=== PATIENT | female | born 1970 | race Caucasian/White ===

== ENCOUNTER 2018-11-11 05:20 | Emergency (ER) | payer OTHER ==
[2018-11-11 06:24] LABS: Absolute Lymphocytes (CBC) 1.8 K/uL (0.7-4.9); Absolute Monocytes 0.4 K/uL (0.1-1.3); Basophils % 0.5 % (0-1.3); Eosinophils % 6.2 % (0-4.4); Hematocrit 41.3 % (36.0-45.0); Lymphocytes % 26.7 % (15.3-44.8); MPV 7.9 fL (7.6-11.3); Monocytes % 5.6 % (3.3-12.3); RBC Red Blood Cell Count 4.17 M/uL (3.86-4.86)
[2018-11-11] MEDS ORDERED: KETOROLAC 30 MG/ML INJ ONE (06:27)
[2018-11-11] MEDS ORDERED: DIPHENHYDRAMINE 50 MG/ML VIAL ONE (06:27)
[2018-11-11] MEDS ORDERED: NA CHLORIDE 0.9% 1,000 ML ONE (06:27)
[2018-11-11] MEDS ORDERED: METOCLOPRAMIDE 10 MG/2mL INJ ONE (06:27)
[2018-11-11 06:35] LABS: BUN Blood Urea Nitrogen 11 mg/dL (7-18); Bicarbonate 26 mmol/L (21-32); Glucose Level 103 mg/dL (74-106); Potassium 3.7 mmol/L (3.5-5.1); Sodium Level 141 mmol/L (136-145); Troponin (Emerg Dept Use Only) < 0.02 ng/mL (0.0-0.045)
--- NOTE | 2018-11-11 07:37 | EKG ---
Test Date: 2018-11-11 Test Time: 05:41:48 Supervisor Product Inspection: MEASUREMENT RESULTS: Intervals: Rate: 48 VA: 180 QRSD: 94 QT: 442 QTc: 394 [place]: P: 54 VA: 180 QRS: 49 T: 69 INTERPRETIVE STATEMENTS: Sinus bradycardia Otherwise normal ECG Compared to ECG 01/03/2018 15:48:36 Right-axis deviation no longer present Electronically Signed On 11-11-18 07:36:26 BATCH DUMPER by Rubens Ortez
[2018-11-11] MEDS ORDERED: cloNIDine HCl 0.1 MG TAB ONE (07:39)
--- NOTE | 2018-11-11 08:32 | EDPHYS ---
Physician Documentation [facility] Name: Makenzie Gallardo Age: 48 yrs Sex: Female : 1970 Arrival Date: 11/11/2018 Time: 05:23 Bed 7 Private MD: Julius Lubin V ED Physician Peterson Neftali HPI: 11/11 06:50 This 48 yrs old Female presents to ER via Wheelchair with complaints of kb Vomiting, Dizziness, Headache. 06:50 The patient complains of pain to the forehead. The patient describes the headache as kb constant. Onset: The symptoms/episode began/occurred this morning. Associated signs and symptoms: Pertinent positives: nausea, Photophobia vomiting. Severity of symptoms: At its worst the pain was moderate, in the emergency department the pain is unchanged. Headache History: The patient has had previous headaches and this one is similar to previous episodes. The symptoms are alleviated by nothing. the symptoms are aggravated by lights. The patient has experienced similar episodes in the past, a few times. The patient has not recently seen a physician. Pt reports she woke up with a migraine headache this morning. Has a history of them, but hasn't had one in a long time. States she hasn't had seroquel in 2 days so is concerned that that is why she has the headache. Reports she has been on seroquel every day for 2 years, ran out and is supposed to get a refill today. 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 - Hysterectomy lp1 Historical: - Allergies: 05:43 No Known Allergies; lp1 - Home Meds: 05:43 lithium carbonate 300 mg Oral cap 2 caps nightly [Active]; escitalopram oxalate 10 mg lp1 oral tab 1 tab once daily [Active]; losartan 25 mg oral tab 1 tab once daily [Active]; propranolol 120 mg Oral Cs24 1 cap once daily [Active]; lamotrigine 100 mg oral tab 1 tab once daily [Active]; Seroquel 200 mg oral tab nightly [Active]; 06:18 Lexapro Oral [Active]; bb - PMHx: 05:43 Bipolar disorder; Depression; Hypertension; lp1 - PSHx: 05:43 Hysterectomy; lp1 - Immunization history:: Adult Immunizations up to date. - Social history:: Smoking status: Patient/guardian denies using tobacco. - Ebola Screening: : No symptoms or risks identified at this time. ROS: 06:50 Constitutional: Negative for fever, chills, and weight loss, Eyes: Negative for injury, kb pain, redness, and discharge, ENT: Negative for injury, pain, and discharge, Neck: Negative for injury, pain, and swelling, Cardiovascular: Negative for chest pain, palpitations, and edema, Respiratory: Negative for shortness of breath, cough, wheezing, and pleuritic chest pain, Back: Negative for injury and pain, : Negative for injury, bleeding, discharge, and swelling, MS/Extremity: Negative for injury and deformity, Skin: Negative for injury, rash, and discoloration. 06:50 Abdomen/GI: Positive for nausea and vomiting, Negative for abdominal pain, diarrhea, constipation, abdominal cramps, abdominal distension, anorexia. 06:50 Neuro: Positive for headache. Exam: 06:50 Constitutional: This is a well developed, well nourished patient who is awake, alert, kb and in no acute distress. Head/Face: Normocephalic, atraumatic. Eyes: Pupils equal round and reactive to light, extra-ocular motions intact. Lids and lashes normal. Conjunctiva and sclera are non-icteric and not injected. Cornea within normal limits. Periorbital areas with no swelling, redness, or edema. ENT: Nares patent. No nasal discharge, no septal abnormalities noted. Tympanic membranes are normal and external auditory canals are clear. Oropharynx with no redness, swelling, or masses, exudates, or evidence of obstruction, uvula midline. Mucous membranes moist. Neck: Trachea midline, no thyromegaly or masses palpated, and no cervical lymphadenopathy. Supple, full range of motion without nuchal rigidity, or vertebral point tenderness. No Meningismus. Chest/axilla: Normal chest wall appearance and motion. Nontender with no deformity. No lesions are appreciated. Cardiovascular: Regular rate and rhythm with a normal S1 and S2. No gallops, murmurs, or rubs. Normal PMI, no JVD. No pulse deficits. Respiratory: Lungs have equal breath sounds bilaterally, clear to auscultation and percussion. No rales, rhonchi or wheezes noted. No increased work of breathing, no retractions or nasal flaring. Abdomen/GI: Soft, non-tender, with normal bowel sounds. No distension or tympany. No guarding or rebound. No evidence of tenderness throughout. Skin: Warm, dry with normal turgor. Normal color with no rashes, no lesions, and no evidence of cellulitis. MS/ Extremity: Pulses equal, no cyanosis. Neurovascular intact. Full, normal range of motion. Neuro: Awake and alert, GCS 15, oriented to person, place, time, and situation. Cranial nerves II-XII grossly intact. Motor strength 5/5 in all extremities. Sensory grossly intact. Cerebellar exam normal. Normal gait. Vital Signs: 05:38 BP 186 / 127 LA; Pulse 58; Resp 14; Temp 97.5(TE); Pulse Ox 99% on R/A; Weight 81.65 lp1 kg; Height 5 ft. 9 in. (175.26 cm); Pain 8/10; 05:38 BP 197 / 113 RA; lp1 06:38 BP 167 / 111; Pulse 53; Resp 13; Pulse Ox 98% on R/A; lp1 07:28 BP 175 / 115; Pulse 62; Resp 17; Pulse Ox 99% on R/A; sg 07:55 BP 171 / 105; Pulse 56; Pulse Ox 100% ; sg 05:38 Body Mass Index 26.58 (81.65 kg, 175.26 cm) lp1 Tan Coma Score: 07:00 Eye Response: spontaneous(4). Verbal Response: oriented(5). Motor Response: obeys kb commands(6). Total: 15. MDM: 06:01 Patient medically screened. kb 07:00 Data reviewed: vital signs, nurses notes. Data interpreted: Pulse oximetry: on room air kb is 98 %. Interpretation: normal. 07:31 Counseling: I had a detailed discussion with the patient and/or guardian regarding: the kb historical points, exam findings, and any diagnostic results supporting the discharge/admit diagnosis, lab results, radiology results, the need for outpatient follow up, a family practitioner, to return to the emergency department if symptoms worsen or persist or if there are any questions or concerns that arise at home. ED course: Pt's headache improved. States she is feeling better, appears to be better. PCP on holiday until next Sunday, will prescribe 7 seroquel today and pt will call PCP when he returns for refill of medication. 08:31 ED course: Pt states she hasn't taken her bp meds yet today, but will take them when kb she gets home. Pt is asymptomatic of bp. 11/11 06:07 Order name: CBC with Diff; Complete Time: 06:47 kb 11/11 06:07 Order name: Basic Metabolic Panel; Complete Time: 06:39 kb 11/11 06:07 Order name: CT Head Brain wo Cont kb 11/11 06:07 Order name: Troponin (emerg Dept Use Only); Complete Time: 06:39 kb 11/11 06:07 Order name: EKG; Complete Time: 06:08 kb 11/11 06:07 Order name: EKG - Nurse/Tech; Complete Time: 06:15 kb Administered Medications: 06:37 Drug: NS 0.9% 1000 ml Route: IV; Rate: 1000 ml; Site: right antecubital; lp1 06:37 Drug: TORadol 30 mg Route: IVP; Site: right antecubital; lp1 07:32 Follow up: Response: No adverse reaction; Pain is decreased sg 06:37 Drug: Benadryl 12.5 mg Route: IVP; Site: right antecubital; lp1 07:32 Follow up: Response: No adverse reaction sg 06:37 Drug: Reglan 10 mg Route: IVP; Site: right antecubital; lp1 07:32 Follow up: Response: No adverse reaction; Pain is decreased sg 07:32 Drug: cloNIDine 0.1 mg Route: PO; sg Disposition: 21:00 Co-signature as Attending Physician, Neftali Peterson MD. Disposition: 11/11/18 08:32 Discharged to Home. Impression: Migraine, Essential (primary) hypertension. - Condition is Stable. - Discharge Instructions: Hypertension, [id number]-[id number], Migraine Headache, [id number]. - Prescriptions for Seroquel 200 mg Oral tablet - take 1 tablet by ORAL route At bedtime; 7 tablet. - Medication Reconciliation Form, Thank You Letter, Antibiotic Education, Prescription Opioid Use form. - Follow up: Private Physician; When: 2 - 3 days; Reason: Recheck today's complaints, Continuance of care, Re-evaluation by your physician. Follow up: Emergency Department; When: As needed; Reason: Worsening of condition. Signatures: Dispatcher [employer] BREONNA Bustos Yuliya, PEWTER FABRICATOR-C PEWTER FABRICATOR-Ckb Gage Kilgore, RN RN sg Natalie Patton, RN RN bb Rody Sanchez RN RN lp1 Neftali Peterson MD MD gs Corrections: (The following items were deleted from the chart) 08:55 08:32 11/11/2018 08:32 Discharged to Home. Impression: Migraine; Essential (primary) sg hypertension. Condition is Stable. Discharge Instructions: Hypertension, [id number], Migraine Headache, [id number]-[id number]. Prescriptions for Seroquel 200 mg Oral tablet - take 1 tablet by ORAL route At bedtime; 7 tablet. and Forms are Medication Reconciliation Form, Thank You Letter, Antibiotic Education, Prescription Opioid Use. Follow up: Private Physician; When: 2 - 3 days; Reason: Recheck today's complaints, Continuance of care, Re-evaluation by your physician. Follow up: Emergency Department; When: As needed; Reason: Worsening of condition. kb
--- NOTE | 2018-11-11 08:32 | ER ---
Nurse's Notes [facility] Name: Makenzie Gallardo Age: 48 yrs Sex: Female : 1970 Arrival Date: 11/11/2018 Time: 05:23 Bed 7 Private MD: Julius Lubin V Diagnosis: Migraine;Essential (primary) hypertension Presentation: 11/11 05:37 Presenting complaint: Patient states: Woke up this morning with severe headache, lp1 nausea, dizziness, light sensitivity, epigastric pain; States having x 3 episodes of diarrhea this morning. Transition of care: patient was not received from another setting of care. Onset of symptoms was November 11, 2018. Risk Assessment: Do you want to hurt yourself or someone else? Patient reports no desire to harm self or others. Initial Sepsis Screen: Does the patient meet any 2 criteria? No. Patient's initial sepsis screen is negative. Does the patient have a suspected source of infection? No. Patient's initial sepsis screen is negative. Care prior to arrival: None. 05:37 Method Of Arrival: Wheelchair lp1 05:37 Acuity: OPHELIA 3 lp1 CO OP: 05:47 LMP N/A - Hysterectomy lp1 Historical: - Allergies: 05:43 No Known Allergies; lp1 - Home Meds: 05:43 lithium carbonate 300 mg Oral cap 2 caps nightly [Active]; escitalopram oxalate 10 mg lp1 oral tab 1 tab once daily [Active]; losartan 25 mg oral tab 1 tab once daily [Active]; propranolol 120 mg Oral Cs24 1 cap once daily [Active]; lamotrigine 100 mg oral tab 1 tab once daily [Active]; Seroquel 200 mg oral tab nightly [Active]; 06:18 Lexapro Oral [Active]; bb - PMHx: 05:43 Bipolar disorder; Depression; Hypertension; lp1 - PSHx: 05:43 Hysterectomy; lp1 - Immunization history:: Adult Immunizations up to date. - Social history:: Smoking status: Patient/guardian denies using tobacco. - Ebola Screening: : No symptoms or risks identified at this time. Screenin:46 Abuse screen: Denies threats or abuse. Denies injuries from another. Nutritional lp1 screening: No deficits noted. Tuberculosis screening: No symptoms or risk factors identified. Fall Risk None identified. Assessment: 05:43 General: Appears uncomfortable, Behavior is restless. Pain: Complains of pain in lp1 epigastric area, head Pain currently is 8 out of 10 on a pain scale. Quality of pain is described as pressure, sharp, Pain began 2 hours ago. Also complains of nausea, inability to concentrate. Neuro: Level of Consciousness is awake, alert, obeys commands, Oriented to person, place, time, situation, Reports headache in entire photophobia. Cardiovascular: Patient's skin is warm and dry. Respiratory: Respiratory effort is even, unlabored. GI: Abdomen is non-distended, Bowel sounds present X 4 quads. Abdomen is tender to palpation in epigastric area. : Denies burning with urination. EENT: No signs and/or symptoms were reported regarding the EENT system. Derm: Skin is pink, warm \T\ dry. Musculoskeletal: Circulation, motion, and sensation intact. 06:38 Reassessment: Patient returned from CT at this time. lp1 07:30 Reassessment: Patient appears in no apparent distress at this time. Patient and/or sg family updated on plan of care and expected duration. Pain level reassessed. Patient is alert, oriented x 3, equal unlabored respirations, skin warm/dry/pink. Keerthi SANTILLAN a bedside evaluating pt at this time, v/o received for Clonidine 0.1 POx1, pt medicated see EMAR Patient states feeling better. Vital Signs: 05:38 BP 186 / 127 LA; Pulse 58; Resp 14; Temp 97.5(TE); Pulse Ox 99% on R/A; Weight 81.65 lp1 kg; Height 5 ft. 9 in. (175.26 cm); Pain 8/10; 05:38 BP 197 / 113 RA; lp1 06:38 BP 167 / 111; Pulse 53; Resp 13; Pulse Ox 98% on R/A; lp1 07:28 BP 175 / 115; Pulse 62; Resp 17; Pulse Ox 99% on R/A; sg 07:55 BP 171 / 105; Pulse 56; Pulse Ox 100% ; sg 05:38 Body Mass Index 26.58 (81.65 kg, 175.26 cm) lp1 Eclectic Coma Score: 07:00 Eye Response: spontaneous(4). Verbal Response: oriented(5). Motor Response: obeys kb commands(6). Total: 15. ED Course: 05:23 Patient arrived in ED. es 05:24 Julius Lubin MD is Private Physician. es 05:37 Rody Sanchez, RN is Primary Nurse. lp1 05:38 Triage completed. lp1 05:39 Arm band placed on left wrist. lp1 05:46 Patient has correct armband on for positive identification. Placed in gown. Bed in low lp1 position. youth nutritional monitor on. Pulse ox on. NIBP on. 06:01 Yuliya Bustos FNP-C is [facility]. kb 06:01 Neftali Peterson MD is Attending Physician. kb 06:[address] via wheelchair. kw1 06:23 CT Head Brain wo Cont In Process Unspecified. EDMS 06:24 CT completed. Patient tolerated procedure well. Patient moved back from CT. kw1 07:09 Primary Nurse role handed off by Rody Sanchez, RN sg 07:09 Gage Kilgore, RN is Primary Nurse. sg 08:50 No provider procedures requiring assistance completed. IV discontinued, intact, sg bleeding controlled, No redness/swelling at site. Pressure dressing applied. Administered Medications: 06:37 Drug: NS 0.9% 1000 ml Route: IV; Rate: 1000 ml; Site: right antecubital; lp1 06:37 Drug: TORadol 30 mg Route: IVP; Site: right antecubital; lp1 07:32 Follow up: Response: No adverse reaction; Pain is decreased sg 06:37 Drug: Benadryl 12.5 mg Route: IVP; Site: right antecubital; lp1 07:32 Follow up: Response: No adverse reaction sg 06:37 Drug: Reglan 10 mg Route: IVP; Site: right antecubital; lp1 07:32 Follow up: Response: No adverse reaction; Pain is decreased sg 07:32 Drug: cloNIDine 0.1 mg Route: PO; sg Outcome: 08:32 Discharge ordered by . kb 08:50 Discharged to home ambulatory, with family. sg 08:50 Condition: good 08:50 Discharge instructions given to patient, Instructed on discharge instructions, follow up and referral plans. safety practices, Demonstrated understanding of instructions, follow-up care, medications. 08:55 Patient left the ED. sg Signatures: Dispatcher [employer] EDMO Yuliya Bustos FNP-C FNP-Ckb Gage Kilgore, RN RN sg Emilee, Natalie Navarrete RN RN bb Rody Sanchez RN RN [facility] Lizeth Arguello [facility]
--- NOTE | 2018-11-11 09:50 | RAD REPORT ---
EXAM DESCRIPTION: CT - Head Brain Wo Cont - 11/11/2018 6:51 am CLINICAL HISTORY: HEADACHE Severe headache COMPARISON: No comparisons TECHNIQUE: All CT scans are performed using dose optimization technique as appropriate and may inclu de automated exposure control or mA/KV adjustment according to patient size. FINDINGS: No intracranial hemorrhage, hydrocephalus or extra-axial fluid collection.No areas of brai n edema or evidence of midline shift. The paranasal sinuses and mastoids are essentially clear. The calvarium is intact. IMPRESSION: No acute intracranial abnormality.
== END 2018-11-11 08:55 | disposition home or self-care (01) ==
LOC: ER 05:20
DX: G43.909 Migraine, unspecified, not intractable, without status migrainosus (principal); I10 Essential (primary) hypertension; F31.9 Bipolar disorder, unspecified; F32.9 Major depressive disorder, single episode, unspecified
CPT/HCPCS: 36415; 70450; 80048; 84484; 85025; 93005; 96374; 96375; 99285; J2765; J7030

== ENCOUNTER → 2024-10-07 | Day surgery (SDC) | payer BC ==
[2024-10-06 13:58] LABS: Absolute Eosinophils 0.2 K/uL (0-0.5); Absolute Lymphocytes (CBC) 1.3 K/uL (0.7-4.9); Absolute Monocytes 0.3 K/uL (0.1-1.3); Absolute Neutrophil 3.1 K/uL (1.8-8.0); Basophils % 0.7 % (0-1.3); Eosinophils % 3.3 % (0-4.4); Hematocrit 41.7 % (36.0-45.0); Hemoglobin 13.9 g/dL (12.0-15.0); Lymphocytes % 27.2 % (15.3-44.8); MCH 33.1 pg (27.0-35.0); MCHC 33.3 g/dL (32.0-36.0); MCV 99.3 fL (80-100); MPV 7.7 fL (7.6-11.3); Monocytes % 5.6 % (3.3-12.3); Neutrophils % 63.2 % (41.7-73.7); Platelets 210 thou/uL (152-406); Red Cell Distribution Width 12.8 % (12.1-15.2)
[2024-10-06 14:04] LABS: Anion Gap 7.6 mEq/L (5.0-15.0); Potassium 3.6 mEq/L (3.5-5.1)
[~2024-10-07] MED LIST: CEFAZOLIN SODIUM 2 GM/VIAL ONE; FENTANYL CITR 100 MCG/2 ML ONE; KETOROLAC 30 MG/ML INJ ONE; LIDOCAINE 2% MPF 5 ML VIAL ONE; MIDAZOLAM HCL 2 MG/2 ML INJ ONE; NS 0.9% VIAL 20 ML ONE; ONDANSETRON 4 MG/2 ML VIAL ONE; ROCURONIUM 50 MG/5 ML VIAL IV ONE; dexAMETHasone 10 MG/ML VIAL ONE; propofoL 200 MG/20 ML VIAL IV ONE
--- NOTE | 2024-10-07 10:06 | EKG ---
Test Date: 2024-10-06 Test Time: 14:40:05 Leather Heel Breaster: BRANDAN MEASUREMENT RESULTS: Intervals: Rate: 71 SC: 180 QRSD: 88 QT: 376 QTc: 408 [place]: P: 75 SC: 180 QRS: 92 T: 70 INTERPRETIVE STATEMENTS: Normal sinus rhythm Rightward axis Borderline ECG Compared to ECG 11/11/2018 05:41:48 Right-axis deviation now present Sinus bradycardia no longer present Electronically Signed On 10-07-24 10:06:23 SILVERLIGHT DEVELOPER by Aaron Sesay
[2024-10-07] MEDS: Ringers Lactate 1,000 ML IV ONE (10:48)
[2024-10-07] MEDS: LIDOCAINE HCL/EPINEPHRINE 20 ML MDV ONE (13:41)
--- NOTE | 2024-10-07 14:54 | P.OP ---
Preoperative diagnosis: Umbilical Hernia Postoperative diagnosis: Umbilical Hernia Primary procedure: Laparoscopic Umbilical Hernia Repair without mesh Secondary procedure: Diagnostic Laparoscopy with fluid aspiration Anesthesia: GETA + Local Estimated blood loss: <5cc Specimen: Fluid sent from peritoneum Findings: Small ~ 1cm umbilical hernia, large ovarian fluidic cyst Complications: None Implants: none Transferred to: Recovery Room Condition: Good
[2024-10-07] MEDS: HYDROMORPHONE HCL 1 MG/ML INJ ONE (15:22)
[2024-10-07] MEDS: MEPERIDINE HCL 25 MG/ML SYR ONE (15:41)
[2024-10-07] MEDS: HYDROCODONE/APAP 7.5/325 MG TAB ONE (16:20)
[2024-10-07 17:51] VITALS: BP 137/86; TEMP 97.5; O2SAT 98
--- NOTE | 2024-10-07 21:23 | OP ---
Date of Procedure: 10/07/2024 Surgeon: Kostas Perkins MD, Brief History Of Present Illness: The patient is a 54-year-old woman who is known to me from recent clinic visit with a complaint of longstanding worsening umbilical hernia with small protrusion, pain and tenderness. She additionally had some lower abdominal pain which is intermittent at times. She had an ultrasound recently which showed she had a left lower quadrant fluid collection which was not quantified in size, possibly multiloculated collection versus bowel on the ultrasound report. Preoperative Diagnosis: Umbilical hernia. Postoperative Diagnosis: Umbilical hernia/large ovarian cystic mass. Procedures Performed: 1.Laparoscopic umbilical hernia repair with primary repair without mesh. 2.Diagnostic laparoscopy with fluid aspiration, pelvic washings. Anesthesia: General endotracheal plus local with 1% lidocaine. Estimated Blood Loss: Less than 5 cc. Specimen: Pelvic fluid sent from peritoneum for analysis and cytology. Findings: A small 1 cm umbilical hernia was noted and a large ovarian fluidic cyst was noted. Complications: None. Implants: None. Disposition: The patient transferred to recovery room in good condition. Intraoperative consult with Dr. Cynthia Sagastume, gynecologic surgeon. Procedure In Detail: After informed consent was obtained, patient was brought into the operating mary m, prepped and draped in the usual sterile fashion. After adequate anesthesia was achieved, I anesth etized an area in the left upper quadrant down to subcutaneous tissue. A 5 mm 0-degree optical troca r was introduced in the abdomen, at this point. I immediately encountered some straw-colored clear f luid. At this point, pneumoperitoneum was achieved. There was no bowel injury throughout the case o r injury to any other solid structures. I then placed a 12 mm trocar in the left mid abdomen. The p atient had a very large cystic type structure emanating from the pelvis consistent with a large ovari an cyst or multiple cysts. The ovary could be visualized in this area as well as in the fallopian tu be material which was over this cystic mass which took up over half the abdominal compartment space. I, at this point, opted to close the umbilical hernia using a 2-0 V-Loc suture with a primary fashio n. I opted not to place mesh at this point as I consulted Dr. Cynthia Sagastume for intraoperative ev aluation of this large cystic pelvic mass. She came in and evaluated the above issue. Please see Dr Patti Sagastume's note for full details regarding her aspect of the procedure. Per Dr. Sagastume's recomme ndations, we opted to not perform any further operation beyond this and therefore I opted to not plac e mesh at this time and no additional surgical interventions other than laparoscopy inspection were p erformed. The pelvic fluid was sent off for pathologic examination and cytology, at this point. I t hen closed the 12 mm trocar site with a Fer-Mirta suture passer with 0 Vicryl in an interrupted fashion with good approximation of tissue. The abdomen was then desufflated under direct vision wit hout incident or complication. Remaining trocars removed. Two skin incisions were then copiously ir rigated and closed with a 4-0 Monocryl in a running fashion. Dermabond placed over top. The patient tolerated the procedure without incident or complication and transferred to PACU in good condition. All counts were correct at the end of the case. RENU/NENITA Voice ID: [id number] Report ID: [id number]
--- NOTE | 2024-10-10 06:28 | OP ---
Date of Procedure: 10/07/2024 Surgeon: Cynthia Sagastume MD This is an intraoperative consult for a pelvic cystic mass. Preoperative Diagnosis: Large pelvic cystic mass. Postoperative Diagnosis: Complex adnexal mass arising from the pelvis extending to the mid abdomen. Procedure Performed: Diagnostic laparoscopy. Anesthesia: General endotracheal. Consulting surgeon is Dr. Kostas Perkins. Surgeon for my part of the procedure is myself. Estimated Blood Loss: Minimal. Specimen: Pelvic fluid from Dr. Perkins. Complication: No complication. Drain: No drain. Disposition: The patient's condition stable. Intraoperative Findings: Large pelvic mass was encountered from the left pelvic sidewall while visua lizing on the entire pelvis with the tube attached to it all the way up to the mid abdomen and the le mary of the umbilicus. There was a and rest of the pelvic cavity, the surfaces were smooth . Peritoneum unremarkable without any implants. Omentum was visualized in the upper abdomen and was unremarkable. The peritoneal surfaces over the liver and the entire surface visible were completely unremarkable I then moved to the operating room and the patient was already under general anesthesia with 2 ports placed, 1 in the left upper quadrant and the other in the left lateral wall tried to trace the cyst back down to the pelvic sidewall. The right sidewall could not be visible and the tube appeared to be arising from the left adnexa. However, the entire pelvic cavity was filled with this and the cyst towards the anterior abdominal wall. Next, superiorly, there appe ared to be multiple cystic components to this mass and I did not see that this would be feasible for removal potential of malignant tumor which would need an en bloc removal with a frozen sec tion potential with possibility of lymph node dissection is available and I decided to leave the mass intact and the patient next would benefit from referral to a gynecological oncologist to do the prim armin surgery to make sure that the outcome is at actual location. Pelvic washings and fluid collected will be sent to a cytology. No biopsy recommended to avoid any further spillage. The case was then completed after closing of the abdominal cavity. The case was handed over to Dr. Perkins to close t he incision. EBL was minimal. I spoke to the family members present and father who was present in the waiting mary m along with Dr. Perkins also. They were notified of the findings and the plan for referral to a CATALYST OPERATOR Oncologist SK/MODL Voice ID: [id number] Report ID: [id number]
== END | disposition home or self-care (01) ==
LOC: OR 10:17
PROVIDERS: ATTEND Surgery
PROC: 0WJG4ZZ Inspection of Peritoneal Cavity, Percutaneous Endoscopic Approach (ICD-10-PCS; 2024-10-07)
PROC: 0WQF4ZZ Repair Abdominal Wall, Percutaneous Endoscopic Approach (ICD-10-PCS; principal; 2024-10-07 12:00)
DX: K42.9 Umbilical hernia without obstruction or gangrene (principal); N83.202 Unspecified ovarian cyst, left side
CPT/HCPCS: 49591; 93005; 85025; 80048; 36415; 88108; 88305; 49320; A4216; J2704; J2003; J2250; J3010 ×2; J1100; J2175; J1171; J2405; J7120